=== PATIENT | female | born 1995 | race Caucasian/White ===

== ENCOUNTER 2017-02-20 10:54 | Emergency (ER) | payer MEDICAID ==
[~2017-02-20] VITALS: Ht 147.3 cm; Wt 44.0 kg
[2017-02-20 13:23] VITALS: BP 101/69
== END 2017-02-20 13:23 | disposition home or self-care (01) ==
LOC: ED 10:54
DX: R42 Dizziness and giddiness (principal)
CPT/HCPCS: J8597; Q0162